=== PATIENT | male | born 2000 | race Caucasian/White ===

== ENCOUNTER 2019-02-11 10:20 | Emergency (ER) | payer MEDICAID ==
[~2019-02-11] VITALS: Ht 167.6 cm; Wt 48.2 kg
[2019-02-11 10:21] VITALS: BP 131/74
[2019-02-11] MEDS ORDERED: MELA3TAB49 PO (10:25)
--- NOTE | 2019-02-11 10:59 | REP ---
Clinical: Trauma. Technique: AP, lateral, bilateral oblique views left 4th digit. Findings: The osseous structures and joint spaces are intact and normal. There is no evidence for acute fracture or dislocation. Surrounding soft tissues are unremarkable. No subcutaneous emphysema or radiodense foreign body. Impression: Normal examination. No acute fracture or dislocation. Electronically Signed by Juan Pablo Vila MD 02/11/2019 10:50 A
== END 2019-02-11 11:27 | disposition home or self-care (01) ==
LOC: M ED 10:20
DX: S69.92XA Unspecified injury of left wrist, hand and finger(s), initial encounter (principal); X58.XXXA Exposure to other specified factors, initial encounter; Y92.89 Other specified places as the place of occurrence of the external cause

== ENCOUNTER → 2019-02-16 | Outpatient (REF) | payer MEDICAID ==
[~2019-02-16] MED LIST: MELA3TAB49 PO
[2019-02-16 19:11] LABS: BASO % 0.7 % (0.0-1.0); EOS # 0.1 10^3/uL (0.0-0.50); EOS % 0.8 % (0.0-3.0); HEMATOCRIT 52.5 % (42.0-52.0); HEMOGLOBIN 17.3 g/dl (13.5-17.5); LYMPH # 1.8 10^3/uL (1.5-6.5); LYMPH % 30.6 % (24.0-44.0); MEAN CORPUSCULAR HEMOGLOBIN 29.8 pg (27.0-33.0); MEAN CORPUSCULAR VOLUME 90.5 fl (80.0-96.0); MONO # 0.5 10^3/uL (0.0-0.8); MONO % 7.8 % (0.0-5.0); NEUTROPHILS # 3.5 10^3/uL (1.8-7.7); NEUTROPHILS % 59.8 % (36.0-66.0); PLATELET COUNT, AUTOMATED 189 10^3/uL (150-450); WHITE BLOOD COUNT 5.9 10^3/uL (4.0-10.0)
[2019-02-16 19:23] LABS: ALBUMIN 4.4 GM/DL (3.2-5.2); ALT/SGPT 33 U/L (12-78); BILIRUBIN,TOTAL 0.4 MG/DL (0.2-1.0); BLOOD UREA NITROGEN 16 MG/DL (7-18); CARBON DIOXIDE LEVEL 31 MEQ/L (21-32); CHLORIDE LEVEL 106 MEQ/L (98-107); CHOLESTEROL LEVEL 141 MG/DL (<200); CHOLESTEROL RISK RATIO 2.043 (<5); CREATININE FOR GFR 0.83 MG/DL (0.70-1.30); GLUCOSE, FASTING 90 MG/DL (70-100); HDL CHOLESTEROL 69 MG/DL (>40); LDL CHOLESTEROL 65 MG/DL (<100); NON-HDL-C 72 MG/DL; SODIUM LEVEL 143 MEQ/L (136-145); THYROID STIMULATING HORMONE 0.704 uIU/ML (0.463-3.98); TOTAL PROTEIN 7.5 GM/DL (6.4-8.2); TRIGLYCERIDES LEVEL 37 MG/DL (<150)
[2019-02-16 20:15] LABS: HEMOGLOBIN A1c 5.7 %
== END ==
LOC: M LAB REF 18:45
PROVIDERS: ATTEND Nurse Practitioner Family
DX: Z13.9 Encounter for screening, unspecified (principal)

== ENCOUNTER 2019-05-29 21:54 | Emergency (ER) | payer MEDICAID ==
[~2019-05-29] VITALS: Ht 167.6 cm; Wt 48.6 kg
[2019-05-29] MEDS ORDERED: diphenhydrAMINE INJ 50MG/ML VIAL (J1200) IV STA (23:43)
[2019-05-29] MEDS ORDERED: dexameTHASONE 20 MG/5 ML VIAL (J1100) IV ONE (23:45)
[2019-05-29] MEDS ORDERED: PRED20TA PO (23:59)
[2019-05-30 00:18] VITALS: BP 129/69
== END 2019-05-30 00:25 | disposition home or self-care (01) ==
LOC: M ED 21:54
DX: L50.9 Urticaria, unspecified (principal)
CPT/HCPCS: 96374; 96375; 99284; J1100; J1200

== ENCOUNTER 2020-02-16 20:02 | Emergency (ER) | payer MEDICAID ==
[~2020-02-16] VITALS: Ht 167.6 cm; Wt 51.9 kg
[~2020-02-16 20:02] MED LIST changes: +PRED20TA PO
[2020-02-16] MEDS ORDERED: FLUO10CA16 (20:16)
[2020-02-16] MEDS ORDERED: KETOROLAC 60MG 2ML VIAL IM ONE (21:45)
[2020-02-16] MEDS ORDERED: LIDOCAINE 5% (LIDODERM) PATCH TD ONE (21:45)
[2020-02-16] MEDS ORDERED: methocarbamoL 750 MG TAB PO ONE (21:45)
[2020-02-16] MEDS ORDERED: ASPE4PAD TOP (23:40)
[2020-02-16] MEDS ORDERED: ROBA750T4 PO (23:40)
[2020-02-16] MEDS ORDERED: NAPR-837 PO (23:40)
[2020-02-16 23:47] VITALS: BP 113/67
[2020-02-17] MEDS ORDERED: **NOTE PATIENT COMMENT** MISC XX SCH (21:00)
--- NOTE | 2020-02-18 15:50 | REP ---
Clinical: Lower thoracic back pain. Technique: Axial noncontrast images of the thoracic spine with coronal and sagittal re-formations. Findings: Vertebral bodies are intact. Normal alignment and kyphosis maintained. No significant degenerative changes are appreciated. No acute fracture / compression injury or subluxation. Spinal canal is patent. Posterior elements and spinous processes are intact. Neural foramen appear patent. Impression: Normal noncontrast thoracic spine CT. Electronically Signed by Juan Pablo Vila MD 02/18/2020 03:48 P
== END 2020-02-16 23:49 | disposition home or self-care (01) ==
LOC: M ED 20:02
DX: M62.830 Muscle spasm of back (principal); F41.9 Anxiety disorder, unspecified
CPT/HCPCS: 72128; 96372; 99283; J1885

== ENCOUNTER → 2022-07-13 | Outpatient (REF) | payer MEDICAID ==
[~2022-07-13] MED LIST changes: +ASPE4PAD TOP; +FLUO10CA18; +NAPR-837 PO; +ROBA750T4 PO
== END ==
LOC: M LAB REF 16:24
PROVIDERS: ATTEND Nurse Practitioner Family
DX: J02.9 Acute pharyngitis, unspecified (principal)

== ENCOUNTER → 2022-08-10 | Outpatient (REF) | payer MEDICAID ==
[2022-08-10 12:57] LABS: BASO % 0.6 % (0.0-1.0); EOS # 0.1 10^3/uL (0.0-0.5); EOS % 1.3 % (0.0-3.0); LYMPH # 2.1 10^3/uL (1.5-5.0); LYMPH % 40.4 % (24.0-44.0); MEAN CORPUSCULAR HEMOGLOBIN 28.5 pg (27.0-33.0); MEAN CORPUSCULAR HGB CONC 31.9 g/dl (32.0-36.5); MEAN CORPUSCULAR VOLUME 89.4 fl (80.0-96.0); MONO # 0.4 10^3/uL (0.0-0.8); MONO % 7.9 % (2.0-8.0); NEUTROPHILS # 2.6 10^3/uL (1.5-8.5); NEUTROPHILS % 49.6 % (36.0-66.0); PLATELET COUNT, AUTOMATED 193 10^3/uL (150-450); RED BLOOD COUNT 5.26 10^6/uL (4.30-6.10); WHITE BLOOD COUNT 5.3 10^3/uL (4.0-10.0)
[2022-08-10 13:20] LABS: HEMOGLOBIN A1c 5.2 % (4.0-6.0)
[2022-08-10 13:56] LABS: CHLORIDE LEVEL 102 MMOL/L (98-107); POTASSIUM SERUM 4.7 MMOL/L (3.5-5.1); SODIUM LEVEL 141 MMOL/L (136-145)
[2022-08-10 13:57] LABS: ALBUMIN 4.3 G/DL (3.2-5.2); CARBON DIOXIDE LEVEL 29 MMOL/L (20-31)
[2022-08-10 14:01] LABS: BILIRUBIN,TOTAL 0.6 MG/DL (0.3-1.2); TRIGLYCERIDES LEVEL 62 MG/DL (<150)
[2022-08-10 14:02] LABS: ALKALINE PHOSPHATASE 79 U/L (46-116); BLOOD UREA NITROGEN 20 MG/DL (9-23); CALCIUM LEVEL 9.7 MG/DL (8.5-10.1); GLUCOSE, FASTING 93 MG/DL (60-100); THYROID STIMULATING HORMONE 2.014 uIU/ML (0.55-4.78)
[2022-08-10 14:03] LABS: TOTAL PROTEIN 7.4 G/DL (5.7-8.2)
[2022-08-10 14:04] LABS: ALT/SGPT 26 U/L (7.0-40); AST/SGOT 21 U/L (<34); CHOLESTEROL LEVEL 143 MG/DL (<200); CHOLESTEROL RISK RATIO 2.24 (<5); CREATININE FOR GFR 0.77 MG/DL (0.70-1.30); GLOMERULAR FILTRATION RATE > 60.0 (>60); HDL CHOLESTEROL 63.6 MG/DL (>40); NON-HDL-C 79 MG/DL
[2022-08-10 14:28] LABS: HIV 1&2 SCREEN CENTAUR NEGATIVE (NEGATIVE)
== END ==
LOC: M LAB REF 12:08
PROVIDERS: ATTEND Nurse Practitioner Family
DX: Z11.3 Encounter for screening for infections with a predominantly sexual mode of transmission (principal); Z13.228 Encounter for screening for other metabolic disorders

== ENCOUNTER 2023-01-26 15:02 | Emergency (ER) | payer OTHER ==
[~2023-01-26] VITALS: Ht 167.6 cm; Wt 53.3 kg
[2023-01-26 15:04] VITALS: BP 146/62
[2023-01-26] MEDS ORDERED: IBUPROFEN 600MG TAB PO ONE (19:40)
[2023-01-26] MEDS ORDERED: methocarbamoL 500 MG TAB PO ONE (19:40)
== END 2023-01-26 21:09 | disposition left against medical advice (07) ==
LOC: M ED 15:02
DX: M54.50 Low back pain, unspecified (principal); E11.9 Type 2 diabetes mellitus without complications; Z53.9 Procedure and treatment not carried out, unspecified reason

== ENCOUNTER 2023-04-26 03:06 | Emergency (ER) | payer OTHER ==
[2023-04-26 04:05] LABS: BASO % 0.5 % (0.0-1.0); EOS # 0.1 10^3/uL (0.0-0.5); EOS % 0.9 % (0.0-3.0); HEMATOCRIT 43.3 % (42.0-52.0); HEMOGLOBIN 14.4 g/dl (13.5-17.5); LYMPH # 1.9 10^3/uL (1.5-5.0); LYMPH % 25.6 % (24.0-44.0); MEAN CORPUSCULAR HEMOGLOBIN 29.1 pg (27.0-33.0); MEAN CORPUSCULAR HGB CONC 33.3 g/dl (32.0-36.5); MEAN CORPUSCULAR VOLUME 87.5 fl (80.0-96.0); MONO # 0.7 10^3/uL (0.0-0.8); MONO % 8.8 % (2.0-8.0); NEUTROPHILS # 4.7 10^3/uL (1.5-8.5); NEUTROPHILS % 63.9 % (36.0-66.0); PLATELET COUNT, AUTOMATED 190 10^3/uL (150-450); RED BLOOD COUNT 4.95 10^6/uL (4.30-6.10); WHITE BLOOD COUNT 7.4 10^3/uL (4.0-10.0)
[2023-04-26 04:12] LABS: BLOOD UREA NITROGEN 11 MG/DL (9-23); CARBON DIOXIDE LEVEL 31 MMOL/L (20-31); CHLORIDE LEVEL 105 MMOL/L (98-107); CREATININE FOR GFR 0.73 MG/DL (0.70-1.30); GLOMERULAR FILTRATION RATE > 60.0 (>60); GLUCOSE, FASTING 103 MG/DL (60-100); POTASSIUM SERUM 4.3 MMOL/L (3.5-5.1); SODIUM LEVEL 140 MMOL/L (136-145)
[2023-04-26] MEDS ORDERED: PYRI1TAB5 PO (14:48)
[2023-04-26 14:54] VITALS: BP 117/17; TEMP 98.9; O2SAT 100
[2023-04-26 15:30] LABS: GC DNA AMPLIFICATION NEGATIVE (NEGATIVE)
== END 2023-04-26 15:01 | disposition home or self-care (01) ==
LOC: M ED 03:06
DX: R30.0 Dysuria (principal); R10.9 Unspecified abdominal pain; F41.9 Anxiety disorder, unspecified; F17.200 Nicotine dependence, unspecified, uncomplicated; F12.10 Cannabis abuse, uncomplicated; Z87.442 Personal history of urinary calculi; Z79.899 Other long term (current) drug therapy

== ENCOUNTER 2023-05-01 18:57 | Emergency (ER) | payer OTHER ==
[~2023-05-01] VITALS: Ht 167.6 cm; Wt 50.3 kg
[~2023-05-01 18:57] MED LIST changes: +PYRI1TAB5 PO
[2023-05-01 18:58] VITALS: BP 136/72; TEMP 98.2; O2SAT 99
[2023-05-01] MEDS ORDERED: BISACODYL 10MG SUPP PR ONE (20:05)
[2023-05-01] MEDS ORDERED: COLA100C5 PO (20:53)
[2023-05-01] MEDS ORDERED: DULC10SU2 PR (20:53)
== END 2023-05-01 20:59 | disposition home or self-care (01) ==
LOC: M ED 18:57
DX: K59.00 Constipation, unspecified (principal); F41.9 Anxiety disorder, unspecified; Z79.899 Other long term (current) drug therapy

== ENCOUNTER 2023-12-16 14:55 | Emergency (ER) | payer OTHER ==
[~2023-12-16] VITALS: Ht 167.6 cm; Wt 55.9 kg
[~2023-12-16 14:55] MED LIST changes: +COLA100C5 PO; +DULC10SU2 PR
[2023-12-16] MEDS: METOCLOPRAMIDE INJ 10MG/2ML VIAL IV ONE (19:31)
[2023-12-16] MEDS: NS 1,000 ML IV ONE (19:31)
[2023-12-16 19:43] LABS: BASO # 0.1 10^3/uL (0.0-0.2); BASO % 0.8 % (0.0-1.0); EOS # 0.1 10^3/uL (0.0-0.5); EOS % 1.2 % (0.0-3.0); HEMATOCRIT 44.2 % (42.0-52.0); HEMOGLOBIN 14.7 g/dl (13.5-17.5); LYMPH # 2.1 10^3/uL (1.5-5.0); LYMPH % 32.5 % (24.0-44.0); MEAN CORPUSCULAR HEMOGLOBIN 28.5 pg (27.0-33.0); MEAN CORPUSCULAR HGB CONC 33.3 g/dl (32.0-36.5); MEAN CORPUSCULAR VOLUME 85.8 fl (80.0-96.0); MONO # 0.5 10^3/uL (0.0-0.8); MONO % 6.9 % (2.0-8.0); NEUTROPHILS # 3.8 10^3/uL (1.5-8.5); NEUTROPHILS % 58.3 % (36.0-66.0); PLATELET COUNT, AUTOMATED 255 10^3/uL (150-450); RED BLOOD COUNT 5.15 10^6/uL (4.30-6.10); WHITE BLOOD COUNT 6.5 10^3/uL (4.0-10.0)
[2023-12-16 20:08] LABS: ETHYL ALCOHOL (ETHANOL) 0.004 % (0.000-0.010)
[2023-12-16 20:09] LABS: SALICYLATE LEVEL < 3.0 MG/DL (<30)
[2023-12-16 20:10] LABS: ALKALINE PHOSPHATASE 104 U/L (46-116); ALT/SGPT 22 U/L (7.0-40); AST/SGOT 12 U/L (<34); BILIRUBIN,DIRECT 0.1 MG/DL (<0.4); BILIRUBIN,TOTAL 0.3 MG/DL (0.3-1.2); BLOOD UREA NITROGEN 13 MG/DL (9-23); CALCIUM LEVEL 9.2 MG/DL (8.5-10.1); CARBON DIOXIDE LEVEL 32 MMOL/L (20-31); CHLORIDE LEVEL 105 MMOL/L (98-107); CREATININE FOR GFR 0.76 MG/DL (0.70-1.30); GLOMERULAR FILTRATION RATE > 60.0 (>60); GLUCOSE, FASTING 91 MG/DL (60-100); POTASSIUM SERUM 4.4 MMOL/L (3.5-5.1); SODIUM LEVEL 141 MMOL/L (136-145); TOTAL PROTEIN 7.1 G/DL (5.7-8.2)
[2023-12-16] MEDS ORDERED: REGL10TA6 PO (20:32)
[2023-12-16 20:40] VITALS: BP 121/75; TEMP 98.5; O2SAT 100
== END 2023-12-16 20:42 | disposition home or self-care (01) ==
LOC: M ED 14:55
DX: R51.9 Headache, unspecified (principal); Z79.810 Long term (current) use of selective estrogen receptor modulators (SERMs)
CPT/HCPCS: 70450; 80048; 80076; 80143; 82077; 85025; 96361; 96374; 99283; J2765

== ENCOUNTER 2024-07-20 11:32 | Emergency (ER) | payer OTHER ==
[~2024-07-20] VITALS: Ht 170.2 cm; Wt 47.0 kg
[~2024-07-20 11:32] MED LIST changes: +FLUO-290; -FLUO10CA18; +REGL10TA6 PO
[2024-07-20 12:40] LABS: BASO # 0.1 10^3/uL (0.0-0.2); BASO % 0.3 % (0.0-1.0); EOS % 0.1 % (0.0-3.0); HEMATOCRIT 47.5 % (42.0-52.0); HEMOGLOBIN 15.7 g/dl (13.5-17.5); LYMPH # 1.1 10^3/uL (1.5-5.0); LYMPH % 5.9 % (24.0-44.0); MEAN CORPUSCULAR HGB CONC 33.1 g/dl (32.0-36.5); MEAN CORPUSCULAR VOLUME 87.8 fl (80.0-96.0); MONO # 0.5 10^3/uL (0.0-0.8); MONO % 2.9 % (2.0-8.0); NEUTROPHILS # 16.4 10^3/uL (1.5-8.5); NEUTROPHILS % 90.2 % (36.0-66.0); PLATELET COUNT, AUTOMATED 242 10^3/uL (150-450); RED BLOOD COUNT 5.41 10^6/uL (4.30-6.10); WHITE BLOOD COUNT 18.1 10^3/uL (4.0-10.0)
[2024-07-20 13:07] LABS: ALBUMIN 4.6 G/DL (3.2-5.2); BILIRUBIN,DIRECT 0.2 MG/DL (<0.4); BILIRUBIN,TOTAL 0.6 MG/DL (0.3-1.2); TOTAL PROTEIN 8.6 G/DL (5.7-8.2)
[2024-07-20] MEDS: ONDANSETRON 4MG ORAL DISINTEGRATING TAB PO ONE (13:21)
[2024-07-20] MEDS: ACETAMINOPHEN 500 MG TAB PO ONE (13:24)
[2024-07-20 14:44] VITALS: BP 126/62; TEMP 98.3; O2SAT 96
== END 2024-07-20 14:44 | disposition home or self-care (01) ==
LOC: M ED 11:32 → EDBD 11:32 → M ED 14:44
DX: F10.120 Alcohol abuse with intoxication, uncomplicated (principal); F12.10 Cannabis abuse, uncomplicated; Z79.899 Other long term (current) drug therapy